=== PATIENT | female | born 1975 ===

== ENCOUNTER 2023-11-26 06:25 | Day surgery (SDC) | payer OTHER ==
[2023-11-20 08:07] LABS: HEMATOCRIT 38.4 % (36.0-45.00); HEMOGLOBIN 13.4 g/dL (12.0-15.00); MEAN CELL VOLUME 90.3 fL (80.00-100.00); MEAN CORPUSCULAR HEMOGLOBIN 31.4 pg (27.00-32.0); MEAN CORPUSCULAR HGB CONC 34.8 g/dl (32.0-36.0); PLATELET COUNT 271 K/uL (150-450); RED BLOOD COUNT 4.25 M/uL (4.00-6.00)
[2023-11-20 08:11] LABS: URINE APPEARANCE Clear; URINE BILIRRUBIN Negative (NEGATIVE); URINE BLOOD Negative; URINE COLOR Yellow; URINE LEUKOCYTE Negative; URINE NITRATE Negative; URINE PROTEIN Negative (NEGATIVE)
[2023-11-20 08:15] LABS: URINE BACTERIA 643.7 uL (0.0-1933); URINE RBC 2.2 uL (0.0-20.8); URINE WBC 37.8 uL (0.0-23.2)
[2023-11-20 08:36] LABS: URINE GLUCOSE >=1000 MG/DL (NEGATIVE)
[2023-11-20 08:46] LABS: ALBUMIN 4.4 gm/dL (3.4-5.0); BILIRUBIN TOTAL 0.53 mg/dL (0.3-1.2); CALCIUM 9.7 mg/dL (8.5-10.1); CREATININE SERUM 0.64 mg/dL (0.55-1.02); GFR 98.63; GLOBULINA 3.5 G/DL (2.4-3.5); POTASSIUM 4.39 mEq/L (3.5-5.1); TOTAL PROTEIN 7.9 gm/dL (6.4-8.2)
[2023-11-20 09:01] LABS: INR 1.03; PROTHROMBIN TIME 10.8 SECONDS (9.0-11.5)
[~2023-11-26 06:25] MED LIST: ACTOS15 MG; PROZAC20 MG PO; RESTORIL30 M1 PO; WELLBUTRIN SR100 MG PO
[2023-11-26] MEDS ORDERED: POVIDONE-IODINE 118 ML BOTT TOP ONE (10:30)
[2023-11-26] MEDS ORDERED: LIDOCAINE HCL 1%/EPINEPHRINE 20ML VIAL IJ ONE (10:30)
[2023-11-26] MEDS ORDERED: POVIDONE-IODINE SCRUB 118 ML BOTT TOP ONE (10:30)
[2023-11-26] MEDS ORDERED: EPINEPHRINE HCL/PF 1 MG/ML AMPUL IR ONE (10:30)
[2023-11-26] MEDS ORDERED: BACITRACIN 28.35 GM OINT.TUBE TOP ONE (10:30)
== END 2023-11-26 14:25 | disposition home or self-care (01) ==
LOC: CIR.AMB 06:25
PROVIDERS: ATTEND Otolaryngology
DX: H72.02 Central perforation of tympanic membrane, left ear (principal); E11.9 Type 2 diabetes mellitus without complications; F41.9 Anxiety disorder, unspecified